=== PATIENT | male | born 1970 | race Caucasian/White ===

== ENCOUNTER 2018-04-08 12:36 | Emergency (ER) | payer OTHER, BC ==
[~2018-04-08] VITALS: Ht 198.1 cm; Wt 124.7 kg
[2018-04-08] MEDS ORDERED: IOHEXOL 240 MG/ML 50ML VIAL. ONE (13:04)
[2018-04-08 13:25] LABS: BASO # 0.1 x10^3/uL (0.0-0.2); BASO % 1 % (0-3); EOS # 0.3 x10^3/uL (0.0-0.7); EOS % 3 % (0-3); HEMATOCRIT 45.8 % (39.0-53.0); HEMOGLOBIN 16.1 g/dL (13.0-17.5); LYMPH # 2.2 x10^3/uL (1.0-4.8); LYMPH % 27 % (24-48); MEAN CORPUSCULAR HEMOGLOBIN 35 pg (25-35); MEAN CORPUSCULAR HGB CONC 35 g/dL (31-37); MEAN CORPUSCULAR VOLUME 99 fL (79-100); MONO # 0.7 x10^3/uL (0.0-1.1); MONO % 8 % (0-9); NEUT # 4.9 x10^3uL (1.8-7.7); NEUT % 60 % (31-73); PLATELET COUNT 219 x10^3/uL (140-400); RED BLOOD COUNT 4.62 x10^6/uL (4.30-5.70); RED CELL DISTRIBUTION WIDTH 12.3 % (11.5-14.5); WHITE BLOOD COUNT 8.1 x10^3/uL (4.0-11.0)
[2018-04-08] MEDS ORDERED: IOHEXOL 240 MG/ML 50ML VIAL. PO ONE (13:30)
[2018-04-08 13:35] LABS: ALBUMIN 3.9 g/dL (3.4-5.0); CALCIUM 8.9 mg/dL (8.5-10.1); CREATININE 1.3 mg/dL (0.7-1.3); GFR 58.7; POTASSIUM 3.9 mmol/L (3.5-5.1); TOTAL BILIRUBIN 1.8 mg/dL (0.2-1.0); TOTAL PROTEIN 7.7 g/dL (6.4-8.2)
[2018-04-08] MEDS: IV NORMAL SALINE 1,000ML 1,000 ML IV SCH (13:40)
--- NOTE | 2018-04-08 13:48 | PHYS DOC ---
Past History Past Medical History: Hypertension, Hypothyroid, Other (Gilbert's syndrome) Past Surgical History: Other Smoking: Non-smoker Alcohol Use: None Drug Use: None Adult General Chief Complaint Chief Complaint: ABDOMINAL PAIN HPI HPI Patient is a 48 year old male who presents with complaining of abdominal pain. Patient complaining of intermittent episodes of epigastric pain for almost one month usually happens about 30 minutes after eating and last about 20 minutes as a cramping pain with radiation to his back and rated his pain 7/10. Patient also complaining of chronic diarrhea with one to 3 loose bowel movement a day for the same time. Patient complaining of mild anorexia and losing few pounds. Patient complaining of increasing thoracic back pain for the last couple days. Patient denies fever and chills, nausea and vomiting, chest pain and shortness of breath, dizziness and palpitation. Patient had history of cholecystectomy more than 10 years ago. Patient Review of Systems Review of Systems Constitutional: Denies fever or chills [] Eyes: Denies change in visual acuity, redness, or eye pain [] HENT: Denies nasal congestion or sore throat [] Respiratory: Denies cough or shortness of breath [] Cardiovascular: No additional information not addressed in HPI [] GI: Reports abdominal pain, diarrhea, denies nausea, vomiting, bloody stools. : Denies dysuria or hematuria [] Musculoskeletal: Denies back pain or joint pain [] Integument: Denies rash or skin lesions [] Neurologic: Denies headache, focal weakness or sensory changes [] Endocrine: Denies polyuria or polydipsia [] All other systems were reviewed and found to be within normal limits, except as documented in this note. Current Medications Current Medications Current Medications Medications (Trade) Dose Ordered Sig/Navin Start Time Stop Time Status Last Admin Dose Admin Iohexol (Omnipaque 240 Mg/ml) 50 ml 1X ONCE 04/08/18 13:30 04/08/18 13:31 DC Iohexol (Omnipaque 300 Mg/ml) 75 ml 1X ONCE 04/08/18 13:30 04/08/18 13:31 DC Sodium Chloride 1,000 ml @ 1,000 mls/hr Q1H 04/08/18 13:00 04/08/18 13:59 Allergies Allergies Allergies Coded Allergies Type Severity Reaction Last Updated Verified No Known Drug Allergies 04/08/18 No Physical Exam Physical Exam Constitutional: Well developed, well nourished, no acute distress, non-toxic appearance. [] HENT: Normocephalic, atraumatic, oropharynx moist, no oral exudates, nose normal. [] Eyes: PERRLA, EOMI, conjunctiva normal, no discharge, mild jaundice. [] Neck: Normal range of motion, no tenderness, supple, no stridor. [] Cardiovascular:Heart rate regular rhythm, no murmur [] Lungs & Thorax: Bilateral breath sounds clear to auscultation [] Abdomen: Bowel sounds normal, soft, no tenderness, no masses, no pulsatile masses. [] Skin: Warm, dry, no erythema, no rash. [] Back: No tenderness, no CVA tenderness. [] Extremities: No tenderness, no cyanosis, no clubbing, ROM intact, no edema. [] Neurologic: Alert and oriented X 3, normal motor function, normal sensory function, no focal deficits noted. [] Psychologic: Affect normal, judgement normal, mood normal. [] Current Patient Data Vital Signs Vital Signs Date Time Temp Pulse Resp B/P (MAP) Pulse Ox O2 Delivery O2 Flow Rate FiO2 04/08/18 12:40 96.2 104 18 97 Room Air EKG EKG [] Radiology/Procedures Radiology/Procedures [address] [id number] IMAGING REPORT Signed PATIENT: KALA CLAYTON ACCOUNT: [id number] : 1970 LOCATION: ER AGE: 48 SEX: M EXAM STATUS: REG ER ORD. PHYSICIAN: SHONDA ALEXANDER MD REASON: upper abdominal pain with chronic diarrhea for 1 months PROCEDURE: CT ABD PELV W/ORAL&IV CONTRAST PQRS Compliance Statement: One or more of the following individualized dose reduction techniques were utilized for this examination: 1. Automated exposure control 2. Adjustment of the mA and/or kV according to patient size 3. Use of iterative reconstruction technique CT ABD PELV W/ORAL IV CONTRAST Clinical Indication: Diffuse abdominal pain x 1 month, diarrhea. hx cholecystectomy, hypertension, fatty liver. Comparison: None. Technique: Helical CT imaging of the abdomen and pelvis is performed after 75 cc of Omnipaque 300 IV contrast. Oral contrast also given. Findings: Lung bases are clear. Cardiac size normal. Cholecystectomy. There are 2 tiny hypodensities in the right hepatic lobe, too small to further characterize, image 15. The liver is otherwise homogeneous. The spleen, pancreas, and adrenal glands are normal. The abdominal aorta is normal caliber. Kidneys enhance symmetrically, no hydronephrosis. Gastric fundal diverticulum. No gastric wall thickening. Moderate-sized fat-containing umbilical hernia. No dilated small bowel. The appendix is normal. There is no colon wall thickening. No abdominal adenopathy or free fluid. The urinary bladder is normal. Prostate size normal. No pelvic free fluid. Degenerative spondylosis of L5/S1. IMPRESSION: No acute abdominal or pelvic abnormality. Electronically signed by: Shreyas Cordova MD (04/08/2018 2:23 PM) [id number] DICTATED AND SIGNED BY: SHREYAS CORDOVA MD DATE: 04/08/18 1415 CC: SHONDA ALEXANDER MD; PCP,NO ~ Course & Med Decision Making Course & Med Decision Making Pertinent Labs and Imaging studies reviewed. (See chart for details) Evaluation of patient in ER showed 48-year-old male patient with complaining of chronic intermittent epigastric pain and intermittent episodes of diarrhea. Patient had unremarkable exam except for mild jaundice. 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 CT abdomen and pelvis was unremarkable. Patient has appointment with GI specialist next week and currently taking Prilosec twice a day. Patient was advised to continue his medication and follow with GI specialist. Dragon Disclaimer Dragon Disclaimer This electronic medical record was generated, in whole or in part, using a voice recognition dictation system. Departure Departure: Impression: Primary Impression: Intermittent epigastric abdominal pain Additional Impressions: Chronic diarrhea Gilbert syndrome Hyperbilirubinemia Disposition: HOME, SELF-CARE (at 1517) Condition: STABLE Referrals: PCP,[facility] (PCP) Patient Instructions: Abdominal Pain (Nonspecific), Chronic Diarrhea Additional Instructions: Drink plenty of liquids Follow-up with your primary care physician in 3-5 days Return to ER if not getting better Continue Prilosec Follow-up with your GI appointment next week Scripts Tramadol Hcl (ULTRAM) 50 Mg Tablet 50 MG PO PRN Q6HRS PRN for PAIN, #20 TAB Prov: SHONDA ALEXANDER MD 04/08/18 Problem Qualifiers SHONDA ALEXANDER MD Apr 08, 2018 13:48
[2018-04-08] MEDS: IOHEXOL 300 MG/ML 75 ML VIAL. IV ONE (13:58)
--- NOTE | 2018-04-08 14:28 | RAD ---
PQRS Compliance Statement: One or more of the following individualized dose reduction techniques were utilized for this examination: 1. Automated exposure control 2. Adjustment of the mA and/or kV according to patient size 3. Use of iterative reconstruction technique CT ABD PELV W/ORAL IV CONTRAST Clinical Indication: Diffuse abdominal pain x 1 month, diarrhea. hx cholecystectomy, hypertension, fatty liver. Comparison: None. Technique: Helical CT imaging of the abdomen and pelvis is performed after 75 cc of Omnipaque 300 IV contrast. Oral contrast also given. Findings: Lung bases are clear. Cardiac size normal. Cholecystectomy. There are 2 tiny hypodensities in the right hepatic lobe, too small to further characterize, image 15. The liver is otherwise homogeneous. The spleen, pancreas, and adrenal glands are normal. The abdominal aorta is normal caliber. Kidneys enhance symmetrically, no hydronephrosis. Gastric fundal diverticulum. No gastric wall thickening. Moderate-sized fat-containing umbilical hernia. No dilated small bowel. The appendix is normal. There is no colon wall thickening. No abdominal adenopathy or free fluid. The urinary bladder is normal. Prostate size normal. No pelvic free fluid. Degenerative spondylosis of L5/S1. IMPRESSION: No acute abdominal or pelvic abnormality. Electronically signed by: Shreyas Coronel MD (04/08/2018 2:23 PM) [id number]
[2018-04-08 15:10] LABS: BACTERIA,URINE 0 /HPF (0-FEW); BILIRUBIN,URINE NEG (NEG); CLARITY,URINE CLEAR; COLOR,URINE AMBER; GLUCOSE,URINE NEG (NEG); NITRITE,URINE NEG (NEG); RBC,URINE 0 /HPF (0-2); SQUAMOUS EPITHELIAL CELL,UR OCC /LPF; UROBILINOGEN,URINE 0.2 mg/dL (0.2 mg/dL); WBC,URINE 0 /HPF (0-4)
[2018-04-08] MEDS ORDERED: TRAM-48 PO (15:20)
[2018-04-08 15:48] VITALS: BP 122/74
== END 2018-04-08 15:52 | disposition home or self-care (01) ==
LOC: ER 12:36
DX: R10.13 Epigastric pain (principal); K52.9 Noninfective gastroenteritis and colitis, unspecified; M54.6 Pain in thoracic spine; E80.4 Gilbert syndrome; I10 Essential (primary) hypertension; E80.6 Other disorders of bilirubin metabolism; E03.9 Hypothyroidism, unspecified; Z90.49 Acquired absence of other specified parts of digestive tract
CPT/HCPCS: 36415; 74177; 80053; 81001; 83690; 85025; 96360; 96361; 99284; Q9967; J7030

== ENCOUNTER 2018-10-16 16:42 | Emergency (ER) | payer OTHER, BC ==
[~2018-10-16] VITALS: Ht 198.1 cm; Wt 122.5 kg
[~2018-10-16 16:42] MED LIST: TRAM-48 PO
[2018-10-16 18:12] LABS: BASO % 1 % (0-3); EOS # 0.2 x10^3/uL (0.0-0.7); EOS % 2 % (0-3); HEMATOCRIT 49.1 % (39.0-53.0); HEMOGLOBIN 16.8 g/dL (13.0-17.5); LYMPH # 1.5 x10^3/uL (1.0-4.8); LYMPH % 23 % (24-48); MEAN CORPUSCULAR HEMOGLOBIN 34 pg (25-35); MEAN CORPUSCULAR HGB CONC 34 g/dL (31-37); MEAN CORPUSCULAR VOLUME 100 fL (79-100); MONO # 0.4 x10^3/uL (0.0-1.1); MONO % 7 % (0-9); NEUT # 4.3 x10^3uL (1.8-7.7); NEUT % 68 % (31-73); PLATELET COUNT 231 x10^3/uL (140-400); RED BLOOD COUNT 4.91 x10^6/uL (4.30-5.70); RED CELL DISTRIBUTION WIDTH 13.1 % (11.5-14.5); WHITE BLOOD COUNT 6.4 x10^3/uL (4.0-11.0)
[2018-10-16] MEDS ORDERED: IV NORMAL SALINE 500ML 500 ML IV ONE (18:15)
--- NOTE | 2018-10-16 18:16 | PHYS DOC ---
Past History Past Medical History: GERD, Hypertension Past Surgical History: Cholecystectomy, Other Smoking: Non-smoker Alcohol Use: None Drug Use: None Adult General Chief Complaint Chief Complaint: ABDOMINAL PAIN HPI HPI Patient is a 48-year-old male presents with intermittent upper abdominal pain, worse with laying down. No worse with exertion. Also notes these had diarrhea for the past month. Discomfort is burning in nature. No relief with his pantoprazole nor Bentyl. Notes that the diarrhea has occasionally black tarry stools. One episode of bright red blood per rectum when wiping 3-4 days ago. No recent changes in weight. Patient travel to [place] about the time of the onset of this but he reports he was already feeling poorly prior to the travel. Denies drinking from any lakes or streams or untreated water. No fever. No nausea or vomiting. His comfort is waxing and waning in moderate in intensity.[] Review of Systems Review of Systems Constitutional: Denies fever or chills [] Eyes: Denies change in visual acuity, redness, or eye pain [] HENT: Denies nasal congestion or sore throat [] Respiratory: Denies cough or shortness of breath [] Cardiovascular: No chest pain or palpitations[] GI: See history of present illness[] : Denies dysuria or hematuria [] Musculoskeletal: Denies back pain or joint pain [] Integument: Denies rash or skin lesions [] Neurologic: Denies headache, focal weakness or sensory changes [] Endocrine: Denies polyuria or polydipsia [] All other systems were reviewed and found to be within normal limits, except as documented in this note. Allergies Allergies Allergies Coded Allergies Type Severity Reaction Last Updated Verified No Known Drug Allergies 04/08/18 No Physical Exam Physical Exam Constitutional: Well developed, well nourished, no acute distress, non-toxic appearance. [] HENT: Normocephalic, atraumatic, bilateral external ears normal, oropharynx moist, no oral exudates, nose normal. [] Eyes: PERRLA, EOMI, conjunctiva normal, no discharge. [] Neck: Normal range of motion, no tenderness, supple, no stridor. [] Cardiovascular:Heart rate regular rhythm, no murmur [] Lungs & Thorax: Bilateral breath sounds clear to auscultation [] Abdomen: Bowel sounds normal, soft, gastric tenderness without any rebound, no guarding, no rigidity, no masses, no pulsatile masses. [] Skin: Warm, dry, no erythema, no rash. [] Back: No tenderness, no CVA tenderness. [] Extremities: No tenderness, no cyanosis, no clubbing, ROM intact, no edema. [] Neurologic: Alert and oriented X 3, normal motor function, normal sensory function, no focal deficits noted. [] Psychologic: Affect normal, judgement normal, mood normal. [] Current Patient Data Vital Signs Vital Signs Date Time Temp Pulse Resp B/P (MAP) Pulse Ox O2 Delivery O2 Flow Rate FiO2 10/16/18 16:50 97.9 83 20 99 Room Air Lab Results Laboratory Tests Test 10/16/18 17:40 White Blood Count 6.4 x10^3/uL (4.0-11.0) Red Blood Count 4.91 x10^6/uL (4.30-5.70) Hemoglobin 16.8 g/dL (13.0-17.5) Hematocrit 49.1 % (39.0-53.0) Mean Corpuscular Volume 100 fL (79-100) Mean Corpuscular Hemoglobin 34 pg (25-35) Mean Corpuscular Hemoglobin Concent 34 g/dL (31-37) Red Cell Distribution Width 13.1 % (11.5-14.5) Platelet Count 231 x10^3/uL (140-400) Neutrophils (%) (Auto) 68 % (31-73) Lymphocytes (%) (Auto) 23 % (24-48) L Monocytes (%) (Auto) 7 % (0-9) Eosinophils (%) (Auto) 2 % (0-3) Basophils (%) (Auto) 1 % (0-3) Neutrophils # (Auto) 4.3 x10^3uL (1.8-7.7) Lymphocytes # (Auto) 1.5 x10^3/uL (1.0-4.8) Monocytes # (Auto) 0.4 x10^3/uL (0.0-1.1) Eosinophils # (Auto) 0.2 x10^3/uL (0.0-0.7) Basophils # (Auto) 0.0 x10^3/uL (0.0-0.2) EKG EKG [] Radiology/Procedures Radiology/Procedures PROCEDURE: CT ABD PELV W/ORAL&IV CONTRAST PQRS Compliance Statement: One or more of the following individualized dose reduction techniques were utilized for this examination: 1. Automated exposure control 2. Adjustment of the mA and/or kV according to patient size 3. Use of iterative reconstruction technique CT abdomen/pelvis with contrast 10/16/2018 6:13 PM INDICATION: Epigastric pain with history of cholecystectomy. COMPARISON: CT abdomen/pelvis April 08, 2018 TECHNIQUE: Multiple axial CT images of the abdomen and pelvis were obtained after the intravenous administration of 75 mL Omnipaque 300. Coronal and sagittal reformats are provided. FINDINGS: Lung bases are clear. Heart size within normal limits. Hypoattenuation of the hepatic parenchyma suggestive of mild hepatic steatosis. Spleen, bilateral adrenal glands and pancreas are normal in appearance. Gallbladder is surgically absent. No intrahepatic or extrahepatic biliary ductal dilatation. The abdominal aorta is normal in course and caliber. There are no pathologically enlarged lymph nodes in the abdomen and pelvis. There is no abdominal free fluid. There is no free intraperitoneal air. Small hiatal hernia. There is a posterior gastric diverticulum measuring 3.1 x 3.3 cm. No adjacent inflammation. Small and large bowel are normal in caliber. There is no evidence for bowel obstruction. There are no pericolonic inflammatory changes. A normal, nondilated appendix is visualized without adjacent inflammatory changes. The kidneys enhance symmetrically. There is no suspicious renal mass. There is no hydronephrosis. There are no suspected calculi within the kidneys, ureters or urinary bladder. Urinary bladder is within normal limits given degree of distention. Prostate and seminal vesicles appear normal. No suspicious osseous normality is identified. IMPRESSION: 1. Mild hepatic steatosis. 2. Posterior gastric diverticulum measuring 3.1 x 3.3 cm without adjacent inflammation. 3. Status post cholecystectomy without evidence for intrahepatic or extrahepatic biliary ductal dilatation.[] Course & Med Decision Making Course & Med Decision Making Pertinent Labs and Imaging studies reviewed. (See chart for details) ED course: Patient arrived, was placed in bed, and tolerated exam well. He was able to tolerate oral contrast and was transported to and from radiology with any complications. He had some improvement of his discomfort with the medications administered in the emergency department. After return of the laboratory and imaging studies, these were discussed with the patient voiced understanding. All questions were answered. He was discharged in improved condition. Medical decision making: This does not appear to be acute coronary syndrome given that symptoms of been going on for the past month without any change with exertion. No evidence of pancreatitis, obstruction, perforation, nor significant electrolyte abnormality. There is the finding noted of the diverticulum of the stomach however there is no evidence of inflammation. Will treat him for what sounds like reflux symptoms and have him follow-up with his regular doctor for scheduling of a possible EGD for further evaluation of these symptoms.[] Dragon Disclaimer Dragon Disclaimer This electronic medical record was generated, in whole or in part, using a voice recognition dictation system. Departure Departure: Impression: Primary Impression: Gastro-esophageal reflux disease with esophagitis Disposition: HOME, SELF-CARE Condition: STABLE Referrals: PCP,NO (PCP) Patient Instructions: Diet for Gastroesophageal Reflux Disease, Adult, Gastritis, Adult, Gastroesophageal Reflux Disease, Adult Additional Instructions: Follow-up with your regular doctor in 2 days. If you do not have regular doctor list of local clinics will be provided for you. Follow the diet recommendations in the discharge instructions. Take your medication as prescribed. You may need to have follow-up with a service representative for possible esophagogastroduodenoscopy (EGD) to provide further evaluation of your symptoms. A note is made on the CAT scan that she have a diverticulum which is an outpouching in the back portion of your stomach. There is no evidence of inflammation on the CAT scan that it is causing today's problems. Return to the ER if worsening discomfort, unable to tolerate liquids, or any other concerns. Scripts Hyoscyamine Sulfate (LEVSIN) 0.125 Mg Tablet 0.125 MG PO QID for abdominal pain/cramping, #30 TAB Prov: NIKO HERNANDEZ DO 10/16/18 Sucralfate (CARAFATE) 1 Gm Tablet 1 TAB PO QID for gastritis, #120 TAB 0 Refills Prov: NIKO HERNANDEZ DO 10/16/18 NIKO HERNANDEZ DO Oct 16, 2018 18:16
[2018-10-16] MEDS ORDERED: IOHEXOL 240 MG/ML 50ML VIAL. ONE (18:17)
[2018-10-16 18:19] LABS: ALBUMIN 4.2 g/dL (3.4-5.0); ALBUMIN/GLOBULIN RATIO 1.1 (1.0-1.7); CALCIUM 9.4 mg/dL (8.5-10.1); GFR 79.4; POTASSIUM 4.2 mmol/L (3.5-5.1); TOTAL BILIRUBIN 1.6 mg/dL (0.2-1.0); TOTAL PROTEIN 8.2 g/dL (6.4-8.2)
[2018-10-16 18:25] LABS: BACTERIA,URINE FEW /HPF (0-FEW); BILIRUBIN,URINE NEG (NEG); CLARITY,URINE CLEAR; COLOR,URINE YELLOW; GLUCOSE,URINE NEG (NEG); NITRITE,URINE NEG (NEG); RBC,URINE OCC /HPF (0-2); UROBILINOGEN,URINE 0.2 mg/dL (0.2 mg/dL); WBC,URINE OCC /HPF (0-4)
[2018-10-16] MEDS ORDERED: HYOSCYAMINE 0.125 MG TAB.RAPDIS PO ONE (18:30)
[2018-10-16] MEDS ORDERED: FAMOTIDINE 20 MG/2 ML VIAL IVP ONE (18:30)
[2018-10-16] MEDS ORDERED: IOHEXOL 300 MG/ML 75 ML VIAL. IV ONE (18:45)
--- NOTE | 2018-10-16 20:13 | RAD ---
PQRS Compliance Statement: One or more of the following individualized dose reduction techniques were utilized for this examination: 1. Automated exposure control 2. Adjustment of the mA and/or kV according to patient size 3. Use of iterative reconstruction technique CT abdomen/pelvis with contrast 10/16/2018 6:13 PM INDICATION: Epigastric pain with history of cholecystectomy. COMPARISON: CT abdomen/pelvis April 08, 2018 TECHNIQUE: Multiple axial CT images of the abdomen and pelvis were obtained after the intravenous administration of 75 mL Omnipaque 300. Coronal and sagittal reformats are provided. FINDINGS: Lung bases are clear. Heart size within normal limits. Hypoattenuation of the hepatic parenchyma suggestive of mild hepatic steatosis. Spleen, bilateral adrenal glands and pancreas are normal in appearance. Gallbladder is surgically absent. No intrahepatic or extrahepatic biliary ductal dilatation. The abdominal aorta is normal in course and caliber. There are no pathologically enlarged lymph nodes in the abdomen and pelvis. There is no abdominal free fluid. There is no free intraperitoneal air. Small hiatal hernia. There is a posterior gastric diverticulum measuring 3.1 x 3.3 cm. No adjacent inflammation. Small and large bowel are normal in caliber. There is no evidence for bowel obstruction. There are no pericolonic inflammatory changes. A normal, nondilated appendix is visualized without adjacent inflammatory changes. The kidneys enhance symmetrically. There is no suspicious renal mass. There is no hydronephrosis. There are no suspected calculi within the kidneys, ureters or urinary bladder. Urinary bladder is within normal limits given degree of distention. Prostate and seminal vesicles appear normal. No suspicious osseous normality is identified. IMPRESSION: 1. Mild hepatic steatosis. 2. Posterior gastric diverticulum measuring 3.1 x 3.3 cm without adjacent inflammation. 3. Status post cholecystectomy without evidence for intrahepatic or extrahepatic biliary ductal dilatation. Electronically signed by: Estefania Zhong MD (10/16/2018 8:10 PM) [facility]
[2018-10-16 20:22] VITALS: BP 120/77
[2018-10-16] MEDS ORDERED: HYOS0.1264 PO (20:28)
[2018-10-16] MEDS ORDERED: SUCR1TAB35 PO (20:28)
== END 2018-10-16 20:40 | disposition home or self-care (01) ==
LOC: ER 16:42
DX: K21.0 Gastro-esophageal reflux disease with esophagitis (principal); I10 Essential (primary) hypertension
CPT/HCPCS: 36415; 74177; 80053; 81001; 83690; 85025; 96361; 96374; 99285; J3490; J7040; Q9967

== ENCOUNTER 2019-02-04 09:38 | Emergency (ER) | payer OTHER, BC ==
[~2019-02-04] VITALS: Ht 200.7 cm; Wt 98.9 kg
[~2019-02-04 09:38] MED LIST changes: +HYOS0.1264 PO; +SUCR1TAB35 PO
[2019-02-04] MEDS ORDERED: IV NORMAL SALINE 1,000ML 1,000 ML IV SCH (09:57)
[2019-02-04] MEDS ORDERED: ASPIRIN 81 MG TAB.CHEW PO ONE (10:00)
--- NOTE | 2019-02-04 10:28 | RAD ---
EXAM: Head CT without contrast. HISTORY: Numbness. Headache. TECHNIQUE: Computed tomographic images of the head were obtained without contrast. *One or more of the following individualized dose reduction techniques were utilized for this examination: 1. Automated exposure control. 2. Adjustment of the mA and/or kV according to patient size. 3. Use of iterative reconstruction technique. COMPARISON: None. FINDINGS: There is no acute or subacute extra-axial or intraparenchymal hemorrhage. There is no mass effect or midline shift. There is no hydrocephalus. The clark-white matter differentiation pattern is intact. There is a small midline posterior fossa arachnoid cyst or megacisterna magna. There is severe mucosal thickening involving the left frontal sinus. There is mild sphenoid sinus mucosal thickening. The mastoid air cells are clear. There is no suspicious calvarial lesion. IMPRESSION: 1. No acute intracranial finding. Note is made that MRI is more sensitive for acute infarction. 2. Left frontal sinus disease. Electronically signed by: Jannette Gonzalez MD (02/04/2019 10:24 AM) [id number]
[2019-02-04 10:44] LABS: BASO # 0.1 x10^3/uL (0.0-0.2); BASO % 1 % (0-3); EOS # 0.3 x10^3/uL (0.0-0.7); EOS % 4 % (0-3); HEMATOCRIT 46.4 % (39.0-53.0); HEMOGLOBIN 16.1 g/dL (13.0-17.5); LYMPH # 2.3 x10^3/uL (1.0-4.8); LYMPH % 31 % (24-48); MEAN CORPUSCULAR HEMOGLOBIN 34 pg (25-35); MEAN CORPUSCULAR HGB CONC 35 g/dL (31-37); MEAN CORPUSCULAR VOLUME 98 fL (79-100); MONO # 0.5 x10^3/uL (0.0-1.1); MONO % 6 % (0-9); NEUT # 4.3 x10^3uL (1.8-7.7); NEUT % 57 % (31-73); PLATELET COUNT 196 x10^3/uL (140-400); RED BLOOD COUNT 4.72 x10^6/uL (4.30-5.70); RED CELL DISTRIBUTION WIDTH 11.9 % (11.5-14.5); WHITE BLOOD COUNT 7.5 x10^3/uL (4.0-11.0)
--- NOTE | 2019-02-04 10:53 | RAD ---
PORTABLE CHEST 1V History: Chest pain Comparison: None. Findings: Single view of the chest is submitted. There is no infiltrate, pneumothorax, or effusion. Pericardial cardiac silhouette is upper limits of normal. There is probably tortuous ascending thoracic aorta although cannot exclude ectasia. Impression: 1. There is probably tortuous ascending thoracic aorta although cannot exclude ectasia. Electronically signed by: Allan Butts MD (02/04/2019 10:49 AM) [id number]
--- NOTE | 2019-02-04 10:53 | PHYS DOC ---
Past History Past Medical History: Hypertension, Hyperthyroid Past Surgical History: Cholecystectomy, Other Additional Past Surgical Histo: thyroid ablation; right arm fx repair Smoking: Non-smoker Alcohol Use: None Drug Use: None Adult General Chief Complaint Chief Complaint: CHEST PAIN HPI HPI Patient is a 48-year-old male who presents with complaint of intermittent chest discomfort for the last week. Patient states that is on the left side of the chest and he describes pain as sharp and stabbing in nature. He states that currently he is having the pain is about a 2 out of 10. He states that at its worse it's been about a 4 out of 10. He denies any nausea, vomiting or diaphoresis. Patient also complains of a headache that he rates at a 4 out of 10 and states that he has numbness to the back of his scalp that radiates down the back of his neck on both sides. He denies any fever. He denies any lateralizing weakness or speech deficits. Regarding the chest pain, patient is not aware of any exacerbating or alleviating factors.[] Review of Systems Review of Systems Constitutional: Denies fever or chills [] Respiratory: Denies cough or shortness of breath [] Cardiovascular: No additional information not addressed in HPI [] GI: Denies abdominal pain, nausea, vomiting or diarrhea [] Integument: Denies rash or skin lesions [] Neurologic: Complains of headache without focal weakness. Complains of bilateral scalp and posterior neck sensory changes [] All other systems were reviewed and found to be within normal limits, except as documented in this note. Current Medications Current Medications Current Medications Medications (Trade) Dose Ordered Sig/[facility] Start Time Stop Time Status Last Admin Dose Admin Aspirin (Children'S Aspirin) 324 mg 1X ONCE 02/04/19 10:00 02/04/19 10:02 DC 02/04/19 10:16 324 MG Sodium Chloride 1,000 ml @ 1,000 mls/hr Q1H 02/04/19 09:57 02/04/19 10:56 02/04/19 10:25 1,000 MLS/HR Allergies Allergies Allergies Coded Allergies Type Severity Reaction Last Updated Verified No Known Drug Allergies 04/08/18 No Physical Exam Physical Exam Constitutional: Well developed, well nourished, no acute distress, non-toxic appearance. [] HENT: Normocephalic, atraumatic, bilateral external ears normal, oropharynx moist, no oral exudates, nose normal. [] Eyes: PERRLA, EOMI, conjunctiva normal, no discharge. [] Neck: Normal range of motion, no tenderness, supple, no stridor. [] Cardiovascular: Regular rate and rhythm[] Lungs & Thorax: Bilateral breath sounds clear to auscultation [] Abdomen: Bowel sounds normal, soft, no tenderness. [] Skin: Warm, dry, no erythema, no rash. [] Extremities: No tenderness, no cyanosis, no clubbing, ROM intact. [] Neurologic: Alert and oriented X 3, no focal deficits noted. [] Current Patient Data Vital Signs Vital Signs Date Time Temp Pulse Resp B/P (MAP) Pulse Ox O2 Delivery O2 Flow Rate FiO2 02/04/19 10:26 71 16 131/93 (106) 98 Room Air 02/04/19 09:50 98.4 EKG EKG EKG demonstrates normal sinus rhythm with rate of 79.[] Radiology/Procedures Radiology/Procedures [] Impressions: PROCEDURE: CT HEAD WO CONTRAST EXAM: Head CT without contrast. HISTORY: Numbness. Headache. TECHNIQUE: Computed tomographic images of the head were obtained without contrast. *One or more of the following individualized dose reduction techniques were utilized for this examination: 1. Automated exposure control. 2. Adjustment of the mA and/or kV according to patient size. 3. Use of iterative reconstruction technique. COMPARISON: None. FINDINGS: There is no acute or subacute extra-axial or intraparenchymal hemorrhage. There is no mass effect or midline shift. There is no hydrocephalus. The clark-white matter differentiation pattern is intact. There is a small midline posterior fossa arachnoid cyst or megacisterna magna. There is severe mucosal thickening involving the left frontal sinus. There is mild sphenoid sinus mucosal thickening. The mastoid air cells are clear. There is no suspicious calvarial lesion. IMPRESSION: 1. No acute intracranial finding. Note is made that MRI is more sensitive for acute infarction. 2. Left frontal sinus disease. Electronically signed by: Jannette Gonzalez MD (02/04/2019 10:24 AM) [facility] Course & Med Decision Making Course & Med Decision Making Pertinent Labs and Imaging studies reviewed. (See chart for details) [] Dragon Disclaimer Dragon Disclaimer This electronic medical record was generated, in whole or in part, using a voice recognition dictation system. Departure Departure: Impression: Primary Impression: Atypical chest pain Additional Impression: Headache Disposition: 01 HOME, SELF-CARE Condition: STABLE Referrals: NICCI PFEIFFER DO (PCP) Patient Instructions: Chest Pain (Nonspecific), General Headache Without Cause, Headache, FAQs Problem Qualifiers Additional Impression: Headache Headache type: unspecified Headache chronicity pattern: unspecified pattern Intractability: not intractable Qualified Codes: R51 - Headache MAGGI DYE Jr., DO Feb 04, 2019 10:52
[2019-02-04 11:07] LABS: ALBUMIN 3.7 g/dL (3.4-5.0); CREATININE 0.8 mg/dL (0.7-1.3); GFR 102.7; POTASSIUM 4.1 mmol/L (3.5-5.1); TOTAL BILIRUBIN 1.3 mg/dL (0.2-1.0); TOTAL PROTEIN 7.5 g/dL (6.4-8.2)
--- NOTE | 2019-02-04 11:13 | EKG ---
[address] [address] Test Date: 2019-02-04 Test Time: 09:48:01 Pat Name: KALA CLAYTON Department: Room: Gender: M Analytic Programmer: TERRY : 1970 Requested By: MAGGI DYE Order Number: [id number] Reading MD: Minesh Mcdowell MD Measurements Intervals [place] Rate: 79 P: 55 [place]: 148 QRS: 36 QRSD: 92 T: 36 QT: 390 QTc: 448 Interpretive Statements SINUS RHYTHM Electronically Signed On 02-04-2019 13:27:11 SPARE PARTS CLERK by Minesh Mcdowell MD
[2019-02-04 12:30] VITALS: BP 136/102
== END 2019-02-04 12:25 | disposition home or self-care (01) ==
LOC: ER 09:38
DX: R07.89 Other chest pain (principal); R51 Headache; I10 Essential (primary) hypertension; E03.9 Hypothyroidism, unspecified
CPT/HCPCS: 36415; 70450; 71045; 80053; 83735; 83880; 84484; 85025; 85379; 93005; 99285-25; J7030

== ENCOUNTER 2020-01-22 13:11 | Emergency (ER) | payer OTHER, BC ==
[~2020-01-22] VITALS: Ht 200.7 cm; Wt 112.3 kg
[2020-01-22 14:02] LABS: BASO # 0.1 x10^3/uL (0.0-0.2); BASO % 1 % (0-3); EOS # 0.1 x10^3/uL (0.0-0.7); EOS % 1 % (0-3); HEMATOCRIT 41.2 % (39.0-53.0); LYMPH # 1.7 x10^3/uL (1.0-4.8); LYMPH % 22 % (24-48); MEAN CORPUSCULAR HEMOGLOBIN 35 pg (25-35); MEAN CORPUSCULAR HGB CONC 34 g/dL (31-37); MEAN CORPUSCULAR VOLUME 103 fL (79-100); MONO # 0.5 x10^3/uL (0.0-1.1); MONO % 7 % (0-9); NEUT # 5.4 x10^3uL (1.8-7.7); NEUT % 69 % (31-73); PLATELET COUNT 224 x10^3/uL (140-400); RED CELL DISTRIBUTION WIDTH 13.4 % (11.5-14.5); WHITE BLOOD COUNT 7.8 x10^3/uL (4.0-11.0)
--- NOTE | 2020-01-22 14:10 | PHYS DOC ---
Past History Past Medical History: Anxiety, High Cholesterol, Hypertension, Hypothyroid Past Surgical History: Cholecystectomy, Other Additional Past Surgical Histo: thyroid ablation; right arm fx repair Smoking: Non-smoker Alcohol Use: None Drug Use: None Adult General Chief Complaint Chief Complaint: CHEST PAIN HPI HPI Patient is a 49yo male presenting for substernal chest pressure. Onset was this morning while taking trash out. Nothing known makes better or worse. Reports x2 similar self-limiting episodes suffered in last 48 hours with activity/body position changes. Associated symptoms include lighthededness, mild vision changes and nausea. Was diagnosed with a PE last week and on Eliquis. He reports being anxious at baseline and unsure if "I need to get rescanned". Review of Systems Review of Systems Fourteen body systems of review of systems have been reviewed. See HPI for per tinent positives and negative responses, other pacheco all other systems are negative, non-pertinent or non-contributory Allergies Allergies Allergies Coded Allergies Type Severity Reaction Last Updated Verified No Known Drug Allergies 04/08/18 No Physical Exam Physical Exam Constitutional: Well developed, well nourished, no acute distress, non-toxic appearance. HENT: Normocephalic, atraumatic, bilateral external ears normal, oropharynx moist, no oral exudates, nose normal. Eyes: PERRLA, EOMI, conjunctiva normal, no discharge. Neck: Normal range of motion, no tenderness, supple, no stridor. Cardiovascular: Heart rate regular, sinus rhythm, no murmurs rubs or gallops Lungs & Thorax: Bilateral breath sounds clear to auscultation Abdomen: Bowel sounds normal, soft, no tenderness, no masses, no pulsatile masses. Nonsurgical abdomen, no peritoneal signs Skin: Warm, dry, no erythema, no rash. Back: No tenderness, no CVA tenderness. Extremities: No tenderness, no cyanosis, no clubbing, ROM intact, no edema. Neurologic: Alert and oriented X 3, grossly normal motor & sensory function, no focal deficits noted. Psychologic: Affect normal, judgement normal, mood normal. Current Patient Data Vital Signs Vital Signs Date Time Temp Pulse Resp B/P (MAP) Pulse Ox O2 Delivery O2 Flow Rate FiO2 01/22/20 13:26 97.8 82 16 145/88 (107) 99 Room Air Lab Results Laboratory Tests Test 01/22/20 13:55 White Blood Count 7.8 x10^3/uL (4.0-11.0) Red Blood Count 4.00 x10^6/uL (4.30-5.70) L Hemoglobin 14.0 g/dL (13.0-17.5) Hematocrit 41.2 % (39.0-53.0) Mean Corpuscular Volume 103 fL (79-100) H Mean Corpuscular Hemoglobin 35 pg (25-35) Mean Corpuscular Hemoglobin Concent 34 g/dL (31-37) Red Cell Distribution Width 13.4 % (11.5-14.5) Platelet Count 224 x10^3/uL (140-400) Neutrophils (%) (Auto) 69 % (31-73) Lymphocytes (%) (Auto) 22 % (24-48) L Monocytes (%) (Auto) 7 % (0-9) Eosinophils (%) (Auto) 1 % (0-3) Basophils (%) (Auto) 1 % (0-3) Neutrophils # (Auto) 5.4 x10^3uL (1.8-7.7) Lymphocytes # (Auto) 1.7 x10^3/uL (1.0-4.8) Monocytes # (Auto) 0.5 x10^3/uL (0.0-1.1) Eosinophils # (Auto) 0.1 x10^3/uL (0.0-0.7) Basophils # (Auto) 0.1 x10^3/uL (0.0-0.2) EKG EKG EKG ordered and interpreted by myself at 1330 hrs. as sinus rhythm at 87 bpm, prolonged QTC at 42, no axis deviation, no acute ischemic findings, no evidence of right heart strain or other fascicular blocks,, no STEMI Radiology/Procedures Radiology/Procedures PROCEDURE: CHEST AP ONLY CHEST AP ONLY 01/22/2020 1:42 PM INDICATION: Chest pain COMPARISON: 02/04/2019 TECHNIQUE: Portable frontal view of the chest is provided. FINDINGS: The cardiomediastinal silhouette is within normal limits. Lungs are clear. There are no significant pleural effusions. There is no pulmonary vascular congestion. No pneumothorax. No suspicious osseous abnormality. IMPRESSION: There is no acute cardiopulmonary process. Electronically signed by: Estefania Zhong MD (01/22/2020 2:37 PM) [id number] Heart Score HEART Score for Chest Pain: HEART Score for Chest Pain Response (Comments) Value History Slighlty/Non-Suspicious 0 ECG Normal 0 Age >45 - < 65 1 Risk Factors 1 or 2 Risk Factors 1 Troponin < Normal Limit 0 Total 2 Risk Factors: Risk Factors: DM, Current or recent (<one month) smoker, HTN, HLP, family history of CAD, obesity. Risk Scores: Risk Factors: DM, Current or recent (<one month) smoker, HTN, HLP, family history of CAD, obesity. Course & Med Decision Making Course & Med Decision Making Pertinent Labs and Imaging studies reviewed. (See chart for details) Discussed no obvious emergent/surgical findings. Deferred T Angio and/or d-dimer that patient requested as management would not change in hemodynamically stable, asymptomatic patient I feel patient's episodes were likely exertional induced, dehydrated with position changes. There is also a big anxiety component to visit today Patient has PCP, Cardio and pulm follow up this upcoming week which I feel is reasonable, strict return precautions discussed with good understanding, all questions and concerns addressed prior to departure Dragon Disclaimer Dragon Disclaimer This electronic medical record was generated, in whole or in part, using a voice recognition dictation system. Departure Departure: Impression: Primary Impression: Chest pain, unspecified Additional Impressions: Anxiety about health History of pulmonary embolism Disposition: 01 DC HOME SELF CARE/HOMELESS Condition: STABLE Referrals: NICCI PFEIFFER DO (PCP) Additional Instructions: As instructed prior to ER departure, please call your primary care physician to notify them of this visit today You have been previously scheduled to see your PCP this upcoming week, please keep this as previously scheduled. Please also keep your prior outpatient scheduled appointments with pulmonology, oncology, and cardiology Your evaluated today for chest pain and there were no emergent and/or surgical findings present. With that said, please keep a close eye on your symptomology has some issues take time to fully present If any concerning signs or symptoms represent prior to outpatient follow-up please do not hesitate to come back for repeat evaluation Is a pleasure to take care of you and I wish you a speedy recovery Problem Qualifiers LUIS ENRIQUE NGUYEN DO Jan 22, 2020 14:10
[2020-01-22] MEDS ORDERED: IV NORMAL SALINE 1,000ML 1,000 ML IV ONE (14:30)
[2020-01-22] MEDS ORDERED: ASPIRIN 325 MG TABLET PO ONE (14:30)
[2020-01-22 14:34] LABS: CALCIUM 9.3 mg/dL (8.5-10.1); GFR 79.1; POTASSIUM 3.7 mmol/L (3.5-5.1)
[2020-01-22 14:38] LABS: ALBUMIN/GLOBULIN RATIO 1.1 (1.0-1.7); TOTAL BILIRUBIN 1.6 mg/dL (0.2-1.0); TOTAL PROTEIN 7.5 g/dL (6.4-8.2)
--- NOTE | 2020-01-22 14:40 | RAD ---
CHEST AP ONLY 01/22/2020 1:42 PM INDICATION: Chest pain COMPARISON: 02/04/2019 TECHNIQUE: Portable frontal view of the chest is provided. FINDINGS: The cardiomediastinal silhouette is within normal limits. Lungs are clear. There are no significant pleural effusions. There is no pulmonary vascular congestion. No pneumothorax. No suspicious osseous abnormality. IMPRESSION: There is no acute cardiopulmonary process. Electronically signed by: Estefania Zhong MD (01/22/2020 2:37 PM) [id number]
[2020-01-22 15:06] VITALS: BP 157/96
--- NOTE | 2020-01-24 13:23 | EKG ---
[address] [address] Test Date: 2020-01-22 Test Time: 13:23:36 Pat Name: KALA CLAYTON Department: Room: Gender: M Director Of Academic Support: [facility] : 1970 Requested By: LUIS ENRIQUE NGUYEN Order Number: [id number] Reading MD: Lamin Lazo Measurements Intervals [place] Rate: 87 P: 38 TN: 152 QRS: 26 QRSD: 94 T: 41 QT: 400 QTc: 482 Interpretive Statements SINUS RHYTHM PROLONGED QT Electronically Signed On 01-24-2020 15:45:13 OVEN BAKER by Lamin Lazo
== END 2020-01-22 15:58 | disposition home or self-care (01) ==
LOC: ER 13:11
DX: R07.89 Other chest pain (principal); R11.0 Nausea; E86.0 Dehydration; F41.9 Anxiety disorder, unspecified; E78.00 Pure hypercholesterolemia, unspecified; I10 Essential (primary) hypertension; E03.9 Hypothyroidism, unspecified; Z90.49 Acquired absence of other specified parts of digestive tract; Z86.711 Personal history of pulmonary embolism; Z98.890 Other specified postprocedural states
CPT/HCPCS: 36415; 71045; 80053; 83880; 84484; 85025; 93005; 96360; 99285; J7030

== ENCOUNTER 2020-04-22 13:04 | Emergency (ER) | payer BC ==
[~2020-04-22] VITALS: Ht 198.1 cm; Wt 115.0 kg
[2020-04-22 15:08] LABS: BACTERIA,URINE 0 /HPF (0-FEW); BILIRUBIN,URINE NEG (NEG); CLARITY,URINE CLEAR; COLOR,URINE YELLOW; GLUCOSE,URINE NEG (NEG); NITRITE,URINE NEG (NEG); RBC,URINE 0 /HPF (0-2); SQUAMOUS EPITHELIAL CELL,UR OCC /LPF; UROBILINOGEN,URINE 0.2 mg/dL (0.2 mg/dL)
[2020-04-22 15:41] LABS: BASO % 0 % (0-3); EOS # 0.1 x10^3/uL (0.0-0.7); EOS % 2 % (0-3); HEMATOCRIT 46.1 % (39.0-53.0); HEMOGLOBIN 15.7 g/dL (13.0-17.5); LYMPH # 1.9 x10^3/uL (1.0-4.8); LYMPH % 27 % (24-48); MEAN CORPUSCULAR HEMOGLOBIN 34 pg (25-35); MEAN CORPUSCULAR HGB CONC 34 g/dL (31-37); MEAN CORPUSCULAR VOLUME 100 fL (79-100); MONO # 0.5 x10^3/uL (0.0-1.1); MONO % 8 % (0-9); NEUT # 4.4 x10^3uL (1.8-7.7); NEUT % 63 % (31-73); PLATELET COUNT 217 x10^3/uL (140-400); RED BLOOD COUNT 4.63 x10^6/uL (4.30-5.70); RED CELL DISTRIBUTION WIDTH 11.9 % (11.5-14.5)
[2020-04-22 15:54] LABS: CALCIUM 8.8 mg/dL (8.5-10.1); CREATININE 0.9 mg/dL (0.7-1.3); POTASSIUM 3.7 mmol/L (3.5-5.1)
--- NOTE | 2020-04-22 15:59 | RAD ---
Exam: Chest one view INDICATION: Back pain TECHNIQUE: Frontal view which Comparisons: 01/22/2020 FINDINGS: The cardiomediastinal silhouette and pulmonary vessels are within normal limits. The lung and pleural spaces are clear. IMPRESSION: No acute cardiopulmonary process. Electronically signed by: Denys Li MD (04/22/2020 3:57 PM) HUSAM
[2020-04-22 16:00] LABS: ALBUMIN 4.2 g/dL (3.4-5.0); DIRECT BILIRUBIN 0.3 mg/dL (0.0-0.2)
--- NOTE | 2020-04-22 16:04 | EKG ---
[address] [address] Test Date: 2020-04-22 Test Time: 15:50:22 Pat Name: KALA CLAYTON Department: Room: Gender: M Certified Scrub Tech: HERMINIA : 1970 Requested By: THOMAS MATUTE Order Number: [id number] Reading MD: Measurements Intervals [place] Rate: 74 P: 45 ME: 154 QRS: 15 QRSD: 92 T: 38 QT: 412 QTc: 458 Interpretive Statements SINUS RHYTHM NORMAL ECG RI6.02 No previous ECG available for comparison
[2020-04-22 16:42] VITALS: BP 154/101
--- NOTE | 2020-04-22 16:55 | RAD ---
Exam: CT of abdomen and pelvis INDICATION: Left-sided flank pain onset Sunday TECHNIQUE: Sequential axial images through the abdomen and pelvis obtained without IV contrast. Sagit tolu and coronal reformatted images were reconstructed from the axial data and reviewed. Comparisons: 10/16/2018 FINDINGS: Heart size is normal. No pericardial effusion. Visualized lung bases are clear. No pleural effusion. Evaluation of solid organs limited secondary to noncontrast technique. Liver, spleen, pancreas, and adrenals are unremarkable. No perinephric inflammation or hydronephrosis. No renal or ureteral calculi are identified. Bladder is distended and appears thin-walled. Prostate is not enlarged. Large and small bowel are unremarkable. Appendix is normal. No free intra-abdominal air or fluid. No obstruction. Abdominal aorta has a normal course and caliber. No enlarged abdominal lymph nodes are identified. No suspicious osseous lesions or acute fractures. IMPRESSION: No acute process identified within the abdomen or pelvis. No renal or ureteral calculi. No evidence f or obstructive. Exposure: One or more of the following in the visualized dose reduction techniques were utilized for this examination: 1. Automated exposure control 2. Adjustment of the MA and/or KV according to patient size 3. Use of iterative of reconstructive technique Electronically signed by: Denys Li MD (04/22/2020 4:53 PM) [facility]
--- NOTE | 2020-04-22 17:07 | PHYS DOC ---
Past History Past Medical History: Anxiety, Hypertension, Kidney Stones Past Surgical History: Other Additional Past Surgical Histo: thyroid ablation; right arm fx repair Smoking: Non-smoker Alcohol Use: None Drug Use: None General Adult EDM: Chief Complaint: FLANK PAIN HPI: HPI: This is a pleasant 50-year-old male presenting the emergency department today with left-sided flank pain. His pain is been present intermittently for 2 days. He has a history of kidney stones. He has not had any blood in his urine. The pain is on the left side. He had been to a chiropractor because he thought he injured his back but that has not helped and his pain is persistent. It is a throbbing aching pain that does not wrap around. It is not associate with nausea vomiting chest pain shortness of breath fevers chills. He reports now more normal bowel movements and normal urinary habits. Review of systems negative for chest pain shortness of breath vomiting fevers chills. All other review of systems negative. ED course: 50-year-old male presenting with left-sided flank pain. On arrival the patient is afebrile with a normal heart rate. Satting well on room air. CBC unremarkable. chemistry panel shows a mild elevated in the bilirubin. AST and ALT within normal limit. Lipase within normal limits. The remainder the chemistry panel unremarkable. Urine analysis shows trace blood. No leuk esterase. No nitrates. No bacteria. EKG reviewed by myself shows sinus rhythm with a regular rate. ST segments congruent. Not suggestive of acute ischemia. CT abdomen pelvis shows no acute process identified. Will discharge patient to follow-up with PCP tomorrow for repeat abdominal exam and repeat bilirubin. On reexamination the patient is more comfortable. His abdomen is soft and nontender without rebound tenderness or guarding. Allergies: Allergies: Allergies Coded Allergies Type Severity Reaction Last Updated Verified No Known Drug Allergies 04/08/18 No Physical Exam: PE: Constitutional: Well developed, well nourished, no acute distress, non-toxic appearance. [] HENT: Normocephalic, atraumatic, bilateral external ears normal, oropharynx moist, no oral exudates, nose normal. [] Eyes: PERRLA, EOMI, conjunctiva normal, no discharge. [] Neck: Normal range of motion, no tenderness, supple, no stridor. [] Cardiovascular:Heart rate regular rhythm, no murmur [] Lungs & Thorax: Bilateral breath sounds clear to auscultation [] Abdomen: Bowel sounds normal, soft, no tenderness, no masses, no pulsatile masses. No rebound tenderness or guarding. Negative Nino sign. Negative McBurney's point. Skin: Warm, dry, no erythema, no rash. [] Back: No tenderness, no CVA tenderness. Extremities: No tenderness, no cyanosis, no clubbing, ROM intact, no edema. [] Neurologic: Alert and oriented X 3, normal motor function, normal sensory function, no focal deficits noted. [] Psychologic: Affect normal, judgement normal, mood normal. [] Current Patient Data: Labs: Laboratory Tests Test 04/22/20 13:55 04/22/20 15:13 Urine Collection Type Unknown Urine Color Yellow Urine Clarity Clear Urine pH 6.0 Urine Specific [place] >=1.030 Urine Protein Neg (NEG-TRACE) Urine Glucose (UA) Neg mg/dL (NEG) Urine Ketones (Stick) Neg mg/dL (NEG) Urine Blood Trace (NEG) Urine Nitrite Neg (NEG) Urine Bilirubin Neg (NEG) Urine Urobilinogen Dipstick 0.2 mg/dL (0.2 mg/dL) Urine Leukocyte Esterase Neg (NEG) Urine RBC 0 /HPF (0-2) Urine WBC 1-4 /HPF (0-4) Urine Squamous Epithelial Cells Occ /LPF Urine Bacteria 0 /HPF (0-FEW) Urine Mucus Mod /LPF White Blood Count 7.0 x10^3/uL (4.0-11.0) Red Blood Count 4.63 x10^6/uL (4.30-5.70) Hemoglobin 15.7 g/dL (13.0-17.5) Hematocrit 46.1 % (39.0-53.0) Mean Corpuscular Volume 100 fL (79-100) Mean Corpuscular Hemoglobin 34 pg (25-35) Mean Corpuscular Hemoglobin Concent 34 g/dL (31-37) Red Cell Distribution Width 11.9 % (11.5-14.5) Platelet Count 217 x10^3/uL (140-400) Neutrophils (%) (Auto) 63 % (31-73) Lymphocytes (%) (Auto) 27 % (24-48) Monocytes (%) (Auto) 8 % (0-9) Eosinophils (%) (Auto) 2 % (0-3) Basophils (%) (Auto) 0 % (0-3) Neutrophils # (Auto) 4.4 x10^3uL (1.8-7.7) Lymphocytes # (Auto) 1.9 x10^3/uL (1.0-4.8) Monocytes # (Auto) 0.5 x10^3/uL (0.0-1.1) Eosinophils # (Auto) 0.1 x10^3/uL (0.0-0.7) Basophils # (Auto) 0.0 x10^3/uL (0.0-0.2) Sodium Level 138 mmol/L (136-145) Potassium Level 3.7 mmol/L (3.5-5.1) Chloride Level 100 mmol/L (98-107) Carbon Dioxide Level 30 mmol/L (21-32) Anion Gap 8 (6-14) Blood Urea Nitrogen 18 mg/dL (8-26) Creatinine 0.9 mg/dL (0.7-1.3) Estimated GFR (Cockcroft-Gault) 89.0 Glucose Level 91 mg/dL (70-99) Calcium Level 8.8 mg/dL (8.5-10.1) Total Bilirubin 2.0 mg/dL (0.2-1.0) H Direct Bilirubin 0.3 mg/dL (0.0-0.2) H Aspartate Amino Transferase (AST) 17 U/L (15-37) Alanine Aminotransferase (ALT) 31 U/L (16-63) Alkaline Phosphatase 57 U/L (46-116) Total Protein 8.0 g/dL (6.4-8.2) Albumin 4.2 g/dL (3.4-5.0) Lipase 78 U/L (73-393) Vital Signs: Vital Signs Date Time Temp Pulse Resp B/P (MAP) Pulse Ox O2 Delivery O2 Flow Rate FiO2 04/22/20 16:42 75 16 154/101 (118) 98 Room Air 04/22/20 14:00 98.4 EKG: EKG: [] Radiology/Procedures: Radiology/Procedures: [] Heart Score: Risk Factors: Risk Factors: DM, Current or recent (<one month) smoker, HTN, HLP, family history of CAD, obesity. Risk Scores: Score 0 - 3: 2.5% MACE over next 6 weeks - Discharge Home Score 4 - 6: 20.3% MACE over next 6 weeks - Admit for Clinical Observation Score 7 - 10: 72.7% MACE over next 6 weeks - Early Invasive Strategies Course & Med Decision Making: Course & Med Decision Making Pertinent Labs and Imaging studies reviewed. (See chart for details) [] Dragon Disclaimer: Dragon Disclaimer: This electronic medical record was generated, in whole or in part, using a voice recognition dictation system. Departure Departure: Impression: Primary Impression: Flank pain Disposition: 01 DC HOME SELF CARE/HOMELESS Condition: STABLE Referrals: NICCI PFEIFFER DO (PCP) Patient Instructions: Flank Pain, [id number] Additional Instructions: EMERGENCY DEPARTMENT GENERAL DISCHARGE INSTRUCTIONS Follow-up with your primary physician in 1 to 2 days. Return to the emergency department if you have any new or concerning findings. Thank you for coming to [facility] emergency department today and trusting us with you care. We trust that you had a positive experience in our Emergency Department. If you wish to speak to the department management, you may call the Director at [phone]. YOUR FOLLOW UP INSTRUCTIONS ARE FOLLOWS: 1. Do you have a private Doctor? If you do not have a private doctor, please ask for a resource list of physicians or clinics that may be able to assist you with follow up care. 2. If a lab test or culture has been done and does not come back immediately, your results will be reviewed and you will be notified if you need a change in treatment. ADDITIONAL INSTRUCTIONS AND INFORMATION: 1. Your care today has been supervised by a physician who is specially trained in emergency care. Many problems require more than one evaluation for a complete diagnosis and treatment. We recommend that you schedule your follow up appointment as recommended to ensure complete treatment of you illness or injury. If you are unable to obtain follow up care and continue to have a problem, or if your condition worsens, we recommend that you return to the ED. 2. We are not able to safely determine your condition over the phone nor are we able to give sound medical advice over the phone. For these safety reasons, if you call for medical advice we will ask you to come to the ED for further evaluation. 3. If you have any questions regarding these discharge instructions please call the ED at [phone]. SAFETY INFORMATION: In the interest of safety, wellness, and injury prevention; we encourage you to wear your sealbelt, if you smoke; quite smoking, and we encourage family to use a protective helmet for bicycling and other sporting events that present an increased risk for head injury. IF YOUR SYMPTOMS WORSEN OR NEW SYMPTOMS DEVELOP, OR YOU HAVE CONCERNS ABOUT YOUR CONDITION; OR IF YOUR CONDITION WORSENS WHILE YOU ARE WAITING FOR YOUR FOLLOW UP APPOINTMENT; EITHER CONTACT YOUR PRIMARY CARE DOCTOR, THE PHYSICIAN WHOSE NAME AND NUMBER YOU WERE GIVEN, OR RETURN TO THE ED IMMEDIATELY. This condition should be evaluated by your primary care physician and any necessary consulting services for continued management within a few days (1-2) after discharge. Return to the emergency department if you have any new or concerning symptoms including but not limited to fever, chills, nausea, vomiting, intractable pain, any new rashes, chest pain, shortness of breath, uncontrolled bleeding, difficulty breathing, and/or vision loss. THOMAS MATUTE MD Apr 22, 2020 17:07
== END 2020-04-22 17:21 | disposition home or self-care (01) ==
LOC: ER 13:04
DX: R10.84 Generalized abdominal pain (principal); F41.9 Anxiety disorder, unspecified; I10 Essential (primary) hypertension; Z98.890 Other specified postprocedural states; Z87.442 Personal history of urinary calculi
CPT/HCPCS: 36415; 71045; 74176; 80048; 80076; 81001; 83690; 85025; 93005; 99285

== ENCOUNTER 2020-11-15 12:54 | Emergency (ER) | payer BC ==
[~2020-11-15] VITALS: Ht 198.1 cm; Wt 126.9 kg
[2020-11-15 13:08] VITALS: BP 163/103
--- NOTE | 2020-11-15 13:22 | PHYS DOC ---
Past History Past Medical History: Anxiety, Hypertension, Kidney Stones Past Surgical History: Cholecystectomy, Other Additional Past Surgical Histo: thyroid ablation; right arm fx repair Smoking: Non-smoker Alcohol Use: None Drug Use: None General Adult EDM: Chief Complaint: ABDOMINAL PAIN HPI: HPI: Patient is a 50-year-old male who presents to the ER today for right upper quadrant pain, distention and nausea started 2 days ago. Patient rates his pain 5 out of 10. It does not radiate. He states that he follows up with a GI doctor and was diagnosed with PPI 6 months ago. He states that since his diagnosis of EPI he has had abdominal pain and nausea. Patient denies any vomiting, diarrhea, blood in stools, dysuria, fevers. Patient has a history of a Ute and an appendectomy. His vital signs are stable. Patient states that he was diagnosed with Covid on Sunday. He states that he is unsure if his symptoms are due to his Covid diagnosis. Review of Systems: Review of Systems: 14 body systems of the review of systems have been reviewed. See HPI for pertinent positive and negative responses, otherwise all other systems are negat lupe, nonpertinent or noncontributory Allergies: Allergies: Allergies Coded Allergies Type Severity Reaction Last Updated Verified No Known Drug Allergies 04/08/18 No Physical Exam: PE: Constitutional: Well developed, well nourished, no acute distress, non-toxic appearance. [] HENT: Normocephalic, atraumatic, bilateral external ears normal, oropharynx moist, no oral exudates, nose normal. [] Eyes: PERRL, EOMI, conjunctiva normal, no discharge. [] Neck: Normal range of motion, no stridor Cardiovascular:Heart rate regular rhythm, no murmur [] Lungs & Thorax: Bilateral breath sounds clear to auscultation [] Abdomen: Bowel sounds normal, soft, abdominal distention noted, pain with deep palpation of right upper quadrant, no liver enlargement palpated Skin: Warm, dry, no erythema, no rash, no jaundice. [] Back: Normal range of motion Extremities: No tenderness, no cyanosis, no clubbing, ROM intact, no edema. [] Neurologic: Alert and oriented X 3, normal motor function, normal sensory function, no focal deficits noted. [] Psychologic: Affect normal, judgement normal, mood normal. [] Current Patient Data: Labs: Laboratory Tests Test 11/15/20 13:30 White Blood Count 5.7 x10^3/uL Red Blood Count 4.57 x10^6/uL Hemoglobin 15.5 g/dL Hematocrit 44.1 % Mean Corpuscular Volume 97 fL Mean Corpuscular Hemoglobin 34 pg Mean Corpuscular Hemoglobin Concent 35 g/dL Red Cell Distribution Width 12.4 % Platelet Count 213 x10^3/uL Neutrophils (%) (Auto) 70 % Lymphocytes (%) (Auto) 22 % Monocytes (%) (Auto) 7 % Eosinophils (%) (Auto) 0 % Basophils (%) (Auto) 1 % Neutrophils # (Auto) 4.0 x10^3uL Lymphocytes # (Auto) 1.3 x10^3/uL Monocytes # (Auto) 0.4 x10^3/uL Eosinophils # (Auto) 0.0 x10^3/uL Basophils # (Auto) 0.0 x10^3/uL Urine Collection Type Unknown Urine Color Yellow Urine Clarity Clear Urine pH 6.5 Urine Specific [place] <=1.005 Urine Protein Neg Urine Glucose (UA) Neg mg/dL Urine Ketones (Stick) Neg mg/dL Urine Blood Neg Urine Nitrite Neg Urine Bilirubin Neg Urine Urobilinogen Dipstick 0.2 mg/dL Urine Leukocyte Esterase Neg Urine RBC Rare /HPF Urine WBC Occ /HPF Urine Squamous Epithelial Cells Occ /LPF Urine Bacteria 0 /HPF Sodium Level 137 mmol/L Potassium Level 3.9 mmol/L Chloride Level 99 mmol/L Carbon Dioxide Level 28 mmol/L Anion Gap 10 Blood Urea Nitrogen 10 mg/dL Creatinine 1.0 mg/dL Estimated GFR (Cockcroft-Gault) 78.8 BUN/Creatinine Ratio 10 Glucose Level 102 mg/dL Calcium Level 9.3 mg/dL Total Bilirubin 2.0 mg/dL Aspartate Amino Transf (AST/SGOT) 41 U/L Alanine Aminotransferase (ALT/SGPT) 78 U/L Alkaline Phosphatase 62 U/L Total Protein 7.9 g/dL Albumin 4.1 g/dL Albumin/Globulin Ratio 1.1 Lipase 94 U/L Current Medications Medications (Trade) Dose Ordered Sig/Navin Route PRN Reason Start Time Stop Time Status Last Admin Dose Admin Sodium Chloride 1,000 ml @ 1,000 mls/hr 1X ONCE IV 11/15/20 13:30 11/15/20 14:29 11/15/20 13:28 Ondansetron HCl (Zofran) 4 mg 1X ONCE IVP 11/15/20 13:30 11/15/20 13:31 DC 11/15/20 13:28 Fentanyl Citrate (Fentanyl 2ml Vial) 50 mcg 1X ONCE IVP 11/15/20 13:30 11/15/20 13:31 DC 11/15/20 13:28 Iohexol (Omnipaque 300 Mg/ml) 75 ml 1X ONCE IV 11/15/20 13:30 11/15/20 13:31 DC 11/15/20 13:37 Info (Do NOT chart on this entry -- for MONITORING) 1 each PRN DAILY PRN MC SEE COMMENTS 11/15/20 13:30 11/17/20 13:29 Vital Signs: Vital Signs Date Time Temp Pulse Resp B/P (MAP) Pulse Ox O2 Delivery O2 Flow Rate FiO2 11/15/20 13:08 97.9 98 18 163/103 98 EKG: EKG: [] Radiology/Procedures: Radiology/Procedures: PROCEDURE: CT ABD PELV W/ IV CONTRST ONLY CT ABDOMEN+PELVIS W History: ruq pain, nausea Comparison: 04/22/2020 Technique: After administration of intravenous contrast, helical CT of the abdomen and pelvis was performed from the lung bases through the ischial tuberosities. Coronal and sagittal reconstructions were obtained. 75 mL of Omnipaque 300 were used. One or more of the following dose reduction techniques were utilized: Automated exposure control (AEC), Adjustment of mA and/or kV according to patient size, Use of iterative reconstruction technique such as ASiR, CT scan done according to ALARA and image gently/image wisely Abdomen Findings: The visualized lung bases are clear. The liver, pancreas, spleen, and bilateral adrenal glands are normal. Cholecystectomy. Symmetric renal enhancement. There is no focal renal mass. There is no hydronephrosis. Gastric fundal diverticulum. The visualized loops of small bowel are normal. The visualized loops of large bowel are normal. There is no evidence of bowel obstruction. Appendix is normal. There is no free fluid. There is no mesenteric or retroperitoneal adenopathy. The abdominal aorta is normal in caliber. Pelvis Findings: Urinary bladder is normal. No pelvic free fluid. There is no pelvic or inguinal adenopathy. There is no acute bony abnormality. Degenerative changes of the spine. IMPRESSION: 1. No acute findings. 2. Cholecystectomy. Electronically signed by: Janki Ontiveros MD (11/15/2020 2:17 PM) [facility] DICTATED AND SIGNED BY: JANKI ONTIVEROS MD DATE: 11/15/20 1413 CC: CONNIE LINCOLN APRN; MARGARETTENICCI Waqar DO ~MTH0 0 [] Heart Score: C/O Chest Pain: No Risk Factors: Risk Factors: DM, Current or recent (<one month) smoker, HTN, HLP, family history of CAD, obesity. Risk Scores: Score 0 - 3: 2.5% MACE over next 6 weeks - Discharge Home Score 4 - 6: 20.3% MACE over next 6 weeks - Admit for Clinical Observation Score 7 - 10: 72.7% MACE over next 6 weeks - Early Invasive Strategies Course & Med Decision Making: Course & Med Decision Making Pertinent Labs and Imaging studies reviewed. (See chart for details) Patient is a 50-year-old male being seen in the ER for right upper quadrant pain with nausea that worsened over the last 2 days but started 6 months prior after being diagnosed with HPI. Patient is Covid positive, diagnosed on Sunday. Work-up in the ER consisted of blood work, urinalysis, CT scan of abdomen. Patient treated with fluids, nausea medication and pain medication. Had mild elevation in liver enzymes, this is most likely due to his COVID-[address] scan of abdomen was unremarkable. Patient's bilirubin was 2 which is consistent with his previous lab values. Patient advised to follow-up with his primary care provider to have these levels rechecked to make sure that they are going down. I discussed with patient all findings and diagnostic testing as well as the need to follow-up with PCP for further evaluation and treatment or return to the ER if any new or worsening symptoms. Strict return precautions were also discussed at length. Patient voiced understanding and agreement with the plan. Patient is hemodynamically stable at the time of disposition. Dragon Disclaimer: Dragon Disclaimer: This electronic medical record was generated, in whole or in part, using a voice recognition dictation system. Departure Departure: Impression: Primary Impression: Abdominal pain Qualified Codes: R10.11 - Right upper quadrant pain Additional Impression: Elevated liver enzymes Disposition: 01 HOME / SELF CARE / HOMELESS Condition: GOOD Referrals: NICCI PFEIFFER DO (PCP) Patient Instructions: Abdominal Pain Additional Instructions: You are seen in the ER today for right upper abdominal pain. Your CT scan of your abdomen was unremarkable. You were noted to have mild elevation in your liver enzymes. This is likely due to your COVID-19 infection. Please follow-up with your primary care provider tomorrow to set up an appointment to have your labs rechecked. Please follow-up with your GI doctor as needed. Continue take your pancreatic enzymes as directed. Follow-up low-fat diet to help with your EPI. Increase your fluids. Take your nausea medication as needed as previously prescribed. If you develop worsening of your abdominal pain, yellowing of your skin, increased abdominal distention, intractable nausea vomiting or diarrhea, blood in your stools or vomit, high fevers refractory to treatment please return to the ER immediately. EMERGENCY DEPARTMENT GENERAL DISCHARGE INSTRUCTIONS Thank you for coming to [facility] (ED) today and trusting us with you care. We trust that you had a positivie experience in our Emergency Department. If you wish to speak to the department management, you may call the director at [phone]. YOUR FOLLOW UP INSTRUCTIONS ARE FOLLOWS: 1. Do you have a private Doctor? If you do not have a private doctor, please ask for a resource list of physicians or clinics that may be able to assist you with follow up care. 2. The Emergency Physician has interpreted your x-rays. The X-Ray specialist will also review them. If there is a change in the findings, you will be notified in 48 hours when at all possible. 3. A lab test or culture has been done, your results will be reviewed and you will be notified if you need a change in treatment. ADDITIONAL INSTRUCTIONS AND INFORMATION: 1. Your care today has been supervised by a physician who is specially trained in emergency care. Many problems require more than one evaluation for a complete diagnosis and treatment. We recommend that you schedule your follow up appointment as recommended to ensure complete treatment of you illness or injury. If you are unable to obtain follow up care and continue to have a problem, or if your condition worsens, we recommend that you return to the ED. 2. We are not able to safely determine your condition over the phone nor are we able to give sound medical advice over the phone. For these safety reasons, if you call for medical advice we will ask you to come to the ED for further evaluation. 3. If you have any questions regarding these discharge instructions please call the ED at [phone]. SAFETY INFORMATION: In the interest of safety, wellness, and injury prevention; we encourage you to wear your sealbelt, if you smoke; quite smoking, and we encourage family to use a protective helmet for bicycling and other sporting events that present an increased risk for head injury. IF YOUR SYMPTOMS WORSEN OR NEW SYMPTOMS DEVELOP, OR YOU HAVE CONCERNS ABOUT YOUR CONDITION; OR IF YOUR CONDITION WORSENS WHILE YOU ARE WAITING FOR YOUR FOLLOW UP APPOINTMENT; EITHER CONTACT YOUR PRIMARY CARE DOCTOR, THE PHYSICIAN WHOSE NAME AND NUMBER YOU WERE GIVEN, OR RETURN TO THE ED IMMEDIATELY. CONNIE LINCOLN GLOVE TAGGER Nov 15, 2020 13:22
[2020-11-15] MEDS ORDERED: IOHEXOL 300 MG/ML 75 ML VIAL. IV ONE (13:30)
[2020-11-15] MEDS ORDERED: CONTRAST GIVEN. MC PRN (13:30)
[2020-11-15] MEDS ORDERED: ONDANSETRON PF 4 MG/2 ML VIAL. IVP ONE (13:30)
[2020-11-15] MEDS ORDERED: IV NORMAL SALINE 1,000ML 1,000 ML IV ONE (13:30)
[2020-11-15 13:48] LABS: BASO % 1 % (0-3); EOS % 0 % (0-3); HEMATOCRIT 44.1 % (39.0-53.0); HEMOGLOBIN 15.5 g/dL (13.0-17.5); LYMPH # 1.3 x10^3/uL (1.0-4.8); LYMPH % 22 % (24-48); MEAN CORPUSCULAR HEMOGLOBIN 34 pg (25-35); MEAN CORPUSCULAR HGB CONC 35 g/dL (31-37); MEAN CORPUSCULAR VOLUME 97 fL (79-100); MONO # 0.4 x10^3/uL (0.0-1.1); MONO % 7 % (0-9); NEUT % 70 % (31-73); PLATELET COUNT 213 x10^3/uL (140-400); RED BLOOD COUNT 4.57 x10^6/uL (4.30-5.70); RED CELL DISTRIBUTION WIDTH 12.4 % (11.5-14.5); WHITE BLOOD COUNT 5.7 x10^3/uL (4.0-11.0)
[2020-11-15 13:55] LABS: CALCIUM 9.3 mg/dL (8.5-10.1); GFR 78.8; POTASSIUM 3.9 mmol/L (3.5-5.1)
[2020-11-15 14:03] LABS: ALBUMIN 4.1 g/dL (3.4-5.0); ALBUMIN/GLOBULIN RATIO 1.1 (1.0-1.7); TOTAL PROTEIN 7.9 g/dL (6.4-8.2)
[2020-11-15 14:12] LABS: BACTERIA,URINE 0 /HPF (0-FEW); BILIRUBIN,URINE NEG (NEG); CLARITY,URINE CLEAR; COLOR,URINE YELLOW; GLUCOSE,URINE NEG (NEG); NITRITE,URINE NEG (NEG); RBC,URINE RARE /HPF (0-2); SQUAMOUS EPITHELIAL CELL,UR OCC /LPF; UROBILINOGEN,URINE 0.2 mg/dL (0.2 mg/dL); WBC,URINE OCC /HPF (0-4)
--- NOTE | 2020-11-15 14:20 | RAD ---
CT ABDOMEN+PELVIS W History: ruq pain, nausea Comparison: 04/22/2020 Technique: After administration of intravenous contrast, helical CT of the abdomen and pelvis was per formed from the lung bases through the ischial tuberosities. Coronal and sagittal reconstructions wer e obtained. 75 mL of Omnipaque 300 were used. One or more of the following dose reduction techniques were utilized: Automated exposure control (AEC), Adjustment of mA and/or kV according to patient size , Use of iterative reconstruction technique such as ASiR, CT scan done according to ALARA and image g ently/image wisely Abdomen Findings: The visualized lung bases are clear. The liver, pancreas, spleen, and bilateral adrenal glands are normal. Cholecystectomy. Symmetric renal enhancement. There is no focal renal mass. There is no hydronephrosis. Gastric fundal diverticulum. The visualized loops of small bowel are normal. The visualized loops of large bowel are normal. There is no evidence of bowel obstruction. Appendix is normal. There is no free fluid. There is no mesenteric or retroperitoneal adenopathy. The abdominal aorta is normal in caliber. Pelvis Findings: Urinary bladder is normal. No pelvic free fluid. There is no pelvic or inguinal adenopathy. There is no acute bony abnormality. Degenerative changes of the spine. IMPRESSION: 1. No acute findings. 2. Cholecystectomy. Electronically signed by: Allan Fernandez MD (11/15/2020 2:17 PM) [facility]
== END 2020-11-15 15:15 | disposition home or self-care (01) ==
LOC: ER 12:54
DX: R10.11 Right upper quadrant pain (principal); R74.8 Abnormal levels of other serum enzymes; I10 Essential (primary) hypertension; Z90.49 Acquired absence of other specified parts of digestive tract; Z87.442 Personal history of urinary calculi
CPT/HCPCS: 36415; 74177; 80053; 81001; 83690; 85025; 96361; 96374; 96375; 99285; J2405; J3010; J7030; Q9967

== ENCOUNTER 2020-11-16 08:30 | Emergency (ER) | payer BC ==
[~2020-11-16] VITALS: Ht 198.1 cm; Wt 125.2 kg
--- NOTE | 2020-11-16 09:17 | PHYS DOC ---
Past History Past Medical History: Anxiety, Hypertension, Kidney Stones Additional Past Medical Histor: fatty liver; EPI Past Surgical History: Cholecystectomy, Other Additional Past Surgical Histo: thyroid ablation; right arm fx repair Smoking: Non-smoker Alcohol Use: None Drug Use: None Adult General Chief Complaint Chief Complaint: ABDOMINAL PAIN HPI HPI Patient is a 50-year-old male presenting for concern about liver enzymes. He has history of EPI, fatty liver disease and prior cholecystectomy. He is currently positive for COVID-19 infection but does disclose he received x2 [employer]. Reports he has been at baseline health since being seen at our facility yesterday but has been constantly worried about his elevated liver enzymes. He is here requesting repeat lab draw today Review of Systems Review of Systems Fourteen body systems of review of systems have been reviewed. See HPI for pertinent positives and negative responses, other pacheco all other systems are negative, non-pertinent or non-contributory Allergies Allergies Allergies Coded Allergies Type Severity Reaction Last Updated Verified No Known Drug Allergies 11/16/20 No Physical Exam Physical Exam Constitutional: Well developed, well nourished, no acute distress, non-toxic appearance. HENT: Normocephalic, atraumatic, bilateral external ears normal, oropharynx moist, no oral exudates, nose normal. Eyes: PERRLA, EOMI, conjunctiva normal, no discharge. Neck: Normal range of motion, no tenderness, supple, no stridor. Cardiovascular: Heart rate regular, sinus rhythm, no murmurs rubs or gallops Lungs & Thorax: Bilateral breath sounds clear to auscultation Abdomen: Bowel sounds normal, soft, no tenderness, no masses, no pulsatile masses. Nonsurgical abdomen, no peritoneal signs Skin: Warm, dry, no erythema, no rash. Back: No tenderness, no CVA tenderness. Extremities: No tenderness, no cyanosis, no clubbing, ROM intact, no edema. Neurologic: Alert and oriented X 3, grossly normal motor & sensory function, no focal deficits noted. Psychologic: Affect normal, judgement normal, mood normal. Current Patient Data Vital Signs Vital Signs Date Time Temp Pulse Resp B/P (MAP) Pulse Ox O2 Delivery O2 Flow Rate FiO2 11/16/20 08:30 98.5 100 20 146/91 97 Room Air Lab Results Laboratory Tests Test 11/16/20 09:25 Sodium Level 138 mmol/L Potassium Level 3.0 mmol/L Chloride Level 100 mmol/L Carbon Dioxide Level 26 mmol/L Anion Gap 12 Blood Urea Nitrogen 10 mg/dL Creatinine 0.9 mg/dL Estimated GFR (Cockcroft-Gault) 89.0 BUN/Creatinine Ratio 11 Glucose Level 176 mg/dL Calcium Level 9.1 mg/dL Total Bilirubin 2.1 mg/dL Aspartate Amino Transf (AST/SGOT) 32 U/L Alanine Aminotransferase (ALT/SGPT) 74 U/L Alkaline Phosphatase 62 U/L Total Protein 7.5 g/dL Albumin 3.9 g/dL Albumin/Globulin Ratio 1.1 EKG EKG [] Radiology/Procedures Radiology/Procedures [] Heart Score C/O Chest Pain: No Risk Factors: Risk Factors: DM, Current or recent (<one month) smoker, HTN, HLP, family history of CAD, obesity. Risk Scores: Risk Factors: DM, Current or recent (<one month) smoker, HTN, HLP, family history of CAD, obesity. Course & Med Decision Making Course & Med Decision Making ABCs unremarkable. HPI and physical examination nonconcerning for any emergent or surgical issues I disclosed with patient little indication for further diagnostic work-up in ER setting but patient was adamant about receiving repeat liver enzymes to trend. I do not know what he wants this information for, I disclosed pathogenesis of COVID-19 infection and that this is normal etc. Ultimately, repeat CMP obtained and results disclosed with patient. I reiterated no need for further diagnostic work-up and/or aggressive intervention in ER setting in an otherwise well-appearing hemodynamically stable patient who is just worried well. 40 mEq potassium given for hypokalemia. Strict return precautions discussed with good understanding, all questions and concerns addressed prior to ER departure Dragon Disclaimer Dragon Disclaimer This electronic medical record was generated, in whole or in part, using a voice recognition dictation system. Departure Departure: Impression: Primary Impression: Elevated liver enzymes Additional Impressions: COVID-19 Hypokalemia Disposition: 01 HOME / SELF CARE / HOMELESS Condition: STABLE Referrals: NICCI PFEIFFER DO (PCP) Additional Instructions: You were seen for a known infection with COVID-19. Your physical exam was shaylee ssuring. You need to quarantine yourself at home away from all other individuals, especially those who are elderly or have any other chronic health issues or an immunocompromised status. You should return to the ED if you develop worsening cough, shortness of breath, chest pain, or any other new or concerning symptoms. Alternate Tylenol and ibuprofen as needed for body aches and pain. I recommend you contact your primary care physician to review current COVID-19 infection in to follow-up on your elevated liver enzymes and low potassium level in the outpatient setting once safe to be seen in clinic again. Problem Qualifiers LUIS ENRIQUE NGUYEN DO Nov 16, 2020 09:17
[2020-11-16 09:48] LABS: CALCIUM 9.1 mg/dL (8.5-10.1); CREATININE 0.9 mg/dL (0.7-1.3)
[2020-11-16 09:54] LABS: ALBUMIN 3.9 g/dL (3.4-5.0); ALBUMIN/GLOBULIN RATIO 1.1 (1.0-1.7); TOTAL BILIRUBIN 2.1 mg/dL (0.2-1.0); TOTAL PROTEIN 7.5 g/dL (6.4-8.2)
[2020-11-16] MEDS ORDERED: POTASSIUM CHLORIDE 20 MEQ TABLET.ER. PO ONE (10:15)
[2020-11-16 10:23] VITALS: BP 135/86
== END 2020-11-16 10:23 | disposition home or self-care (01) ==
LOC: ER 08:30
DX: U07.1 COVID-19 (principal); R74.8 Abnormal levels of other serum enzymes; E87.6 Hypokalemia; F41.9 Anxiety disorder, unspecified; I10 Essential (primary) hypertension; Z87.442 Personal history of urinary calculi; Z90.49 Acquired absence of other specified parts of digestive tract
CPT/HCPCS: 36415; 80053; 99283

== ENCOUNTER 2020-11-21 12:57 | Emergency (ER) | payer BC ==
[~2020-11-21] VITALS: Ht 198.1 cm; Wt 125.5 kg
[2020-11-21 13:12] VITALS: BP 140/86
--- NOTE | 2020-11-21 14:56 | PHYS DOC ---
Past History Past Medical History: Anxiety, Hypertension, Kidney Stones Additional Past Medical Histor: EPI Past Surgical History: Cholecystectomy Additional Past Surgical Histo: ORIF right arm Smoking: Non-smoker Alcohol Use: None Drug Use: None General Adult EDM: Chief Complaint: MULTIPLE COMPLAINTS HPI: HPI: Patient is a 50-year-old male who presents with generalized anxiety. Patient's been seen 2 times in the last couple weeks in the emergency room here, and also at a different emergency room 3 times in the last 2 weeks. Patient states he has right-sided upper abdominal pain, numbness and tingling to bilateral arms and legs that is intermittent. Patient states he was diagnosed with Covid 2 weeks ago and since then he has had a lot of anxiety. Patient denies chest pain, cough, fever, shortness of breath. Patient states "I have really bad anxiety and I quit taking my Prozac". "I does get really worried and have anxiety about my health" patient is a history of anxiety, depression, thyroid removal Review of Systems: Review of Systems: Constitutional: Denies fever or chills Eyes: Denies change in visual acuity HENT: Denies nasal congestion or sore throat Respiratory: Denies cough or shortness of breath Cardiovascular: Denies chest pain or edema GI: Reports right upper quadrant abdominal pain, denies nausea, vomiting, bloody stools or diarrhea : Denies dysuria Musculoskeletal: Denies back pain or joint pain Integument: Denies rash Neurologic: Denies headache, focal weakness or sensory changes Endocrine: Denies polyuria or polydipsia Lymphatic: Denies swollen glands Psychiatric: Reports depression or anxiety Allergies: Allergies: Allergies Coded Allergies Type Severity Reaction Last Updated Verified No Known Drug Allergies 11/16/20 No Physical Exam: PE: Constitutional: Well developed, well nourished, no acute distress, non-toxic appearance. [] HENT: Normocephalic, atraumatic, bilateral external ears normal, oropharynx moist, no oral exudates, nose normal. [] Eyes: PERRLA, EOMI, conjunctiva normal, no discharge. [] Neck: Normal range of motion, no tenderness, supple, no stridor. [] Cardiovascular:Heart rate regular rhythm, no murmur [] Lungs & Thorax: Bilateral breath sounds clear to auscultation [] Abdomen: Bowel sounds normal, soft, no tenderness, no masses, no pulsatile masses. [] Skin: Warm, dry, no erythema, no rash. [] Back: No tenderness, no CVA tenderness. [] Extremities: No tenderness, no cyanosis, no clubbing, ROM intact, no edema. [] Neurologic: Alert and oriented X 3, normal motor function, normal sensory function, no focal deficits noted. [] Psychologic: Affect normal, judgement normal, mood normal. [] Current Patient Data: Vital Signs: Vital Signs Date Time Temp Pulse Resp B/P (MAP) Pulse Ox O2 Delivery O2 Flow Rate FiO2 11/21/20 13:12 98.6 100 14 140/86 (104) 96 EKG: EKG: [] Radiology/Procedures: Radiology/Procedures: [] Heart Score: C/O Chest Pain: No Risk Factors: Risk Factors: DM, Current or recent (<one month) smoker, HTN, HLP, family history of CAD, obesity. Risk Scores: Score 0 - 3: 2.5% MACE over next 6 weeks - Discharge Home Score 4 - 6: 20.3% MACE over next 6 weeks - Admit for Clinical Observation Score 7 - 10: 72.7% MACE over next 6 weeks - Early Invasive Strategies Course & Med Decision Making: Course & Med Decision Making Pertinent Labs and Imaging studies reviewed. (See chart for details) [] 50-year-old male being seen for right upper quadrant pain. Patient's been se en times in the last 2 weeks for same complaint. Patient is also was seen 2 other times on [facility] in emergency room with same symptoms. Patient states that he has generalized anxiety disorder and most of his anxiety is about his health. All labs unremarkable. Patient has an appointment with his PCP on Sunday. Days patient he needs to keep his appointment so he can follow-up about his TSH, A1c, and anxiety. Patient states that he agrees and will make sure he follows up tomorrow. Sending patient home with Viola for anxiety until he can follow-up with his PCP tomorrow. Patient is hemodynamically stable upon disposition. Amelia Disclaimer: Amelia Disclaimer: This electronic medical record was generated, in whole or in part, using a voice recognition dictation system. Departure Departure: Impression: Primary Impression: Anxiety Additional Impression: Abdominal pain Qualified Codes: R10.11 - Right upper quadrant pain Disposition: 01 HOME / SELF CARE / HOMELESS Condition: STABLE Referrals: NICCI PFEIFFER DO (PCP) Patient Instructions: Anxiety and Panic Attacks, [id number] Additional Instructions: You were seen in the emergency room for abdominal pain. Your labs were drawn. Some of the labs you requested will not be resulted for the until the next couple of days. Please keep your appointment with your PCP so you can address your A1c, your anxiety, and your TSH. I am sending you home with a couple Xanax to help with anxiety. Please return to the emergency room if you have worsening symptoms or concerns. EMERGENCY DEPARTMENT GENERAL DISCHARGE INSTRUCTIONS Thank you for coming to [facility] (ED) today and trusting us with you care. We trust that you had a positivie experience in our Emergency Department. If you wish to speak to the department management, you may call the director at [phone]. YOUR FOLLOW UP INSTRUCTIONS ARE FOLLOWS: 1. Do you have a private Doctor? If you do not have a private doctor, please ask for a resource list of physicians or clinics that may be able to assist you with follow up care. 2. The Emergency Physician has interpreted your x-rays. The X-Ray specialist will also review them. If there is a change in the findings, you will be notified in 48 hours when at all possible. 3. A lab test or culture has been done, your results will be reviewed and you will be notified if you need a change in treatment. ADDITIONAL INSTRUCTIONS AND INFORMATION: 1. Your care today has been supervised by a physician who is specially trained in emergency care. Many problems require more than one evaluation for a complete diagnosis and treatment. We recommend that you schedule your follow up appointment as recommended to ensure complete treatment of you illness or injury. If you are unable to obtain follow up care and continue to have a problem, or if your condition worsens, we recommend that you return to the ED. 2. We are not able to safely determine your condition over the phone nor are we able to give sound medical advice over the phone. For these safety reasons, if you call for medical advice we will ask you to come to the ED for further evaluation. 3. If you have any questions regarding these discharge instructions please call the ED at [phone]. SAFETY INFORMATION: In the interest of safety, wellness, and injury prevention; we encourage you to wear your sealbelt, if you smoke; quite smoking, and we encourage family to use a protective helmet for bicycling and other sporting events that present an increased risk for head injury. IF YOUR SYMPTOMS WORSEN OR NEW SYMPTOMS DEVELOP, OR YOU HAVE CONCERNS ABOUT YOUR CONDITION; OR IF YOUR CONDITION WORSENS WHILE YOU ARE WAITING FOR YOUR FOLLOW UP APPOINTMENT; EITHER CONTACT YOUR PRIMARY CARE DOCTOR, THE PHYSICIAN WHOSE NAME AND NUMBER YOU WERE GIVEN, OR RETURN TO THE ED IMMEDIATELY. Scripts Alprazolam (XANAX) 0.5 Mg Tablet 1 TAB PO DAILY for anxiety, #30 TAB Prov: JORDYN RIVAS APRN 11/21/20 JORDYN RIVAS APRN Nov 21, 2020 14:55
[2020-11-21 16:01] LABS: BASO % 1 % (0-3); EOS % 0 % (0-3); HEMATOCRIT 39.6 % (39.0-53.0); HEMOGLOBIN 13.8 g/dL (13.0-17.5); LYMPH # 1.2 x10^3/uL (1.0-4.8); LYMPH % 15 % (24-48); MEAN CORPUSCULAR HEMOGLOBIN 34 pg (25-35); MEAN CORPUSCULAR HGB CONC 35 g/dL (31-37); MEAN CORPUSCULAR VOLUME 98 fL (79-100); MONO # 0.5 x10^3/uL (0.0-1.1); MONO % 6 % (0-9); NEUT # 6.3 x10^3uL (1.8-7.7); NEUT % 79 % (31-73); PLATELET COUNT 271 x10^3/uL (140-400); RED BLOOD COUNT 4.04 x10^6/uL (4.30-5.70); RED CELL DISTRIBUTION WIDTH 12.4 % (11.5-14.5)
[2020-11-21 16:02] LABS: CALCIUM 8.9 mg/dL (8.5-10.1); CREATININE 0.9 mg/dL (0.7-1.3); POTASSIUM 3.3 mmol/L (3.5-5.1)
[2020-11-21 16:08] LABS: ALBUMIN/GLOBULIN RATIO 1.3 (1.0-1.7); TOTAL BILIRUBIN 1.4 mg/dL (0.2-1.0); TOTAL PROTEIN 7.2 g/dL (6.4-8.2)
[2020-11-21] MEDS ORDERED: ALPR0.5T PO (16:34)
--- NOTE | 2020-11-21 22:02 | EKG ---
[address] [address] Test Date: 2020-11-21 Test Time: 13:15:39 Pat Name: KALA CLAYTON Department: Room: Gender: M [employer]: : 1970 Requested By: JORDYN RIVAS Order Number: [id number] Reading MD: Lamin Lazo Measurements Intervals [place] Rate: 99 P: -28 WV: 118 QRS: -22 QRSD: 88 T: -8 QT: 320 QTc: 416 Interpretive Statements SINUS RHYTHM LEFTWARD AXIS T ABNORMALITY IN ANTERIOR LEADS ABNORMAL ECG Electronically Signed On 11-23-2020 13:25:12 CDT by Lamin Lazo
== END 2020-11-21 16:55 | disposition home or self-care (01) ==
LOC: ER 12:57
DX: F41.1 Generalized anxiety disorder (principal); R10.11 Right upper quadrant pain; R20.2 Paresthesia of skin; F41.9 Anxiety disorder, unspecified; I10 Essential (primary) hypertension; Z87.442 Personal history of urinary calculi; Z90.49 Acquired absence of other specified parts of digestive tract
CPT/HCPCS: 36415; 80053; 84443; 85025; 93005; 99284

== ENCOUNTER 2020-11-23 08:10 | Emergency (ER) | payer BC ==
[~2020-11-23] VITALS: Ht 198.1 cm; Wt 124.6 kg
[~2020-11-23 08:10] MED LIST changes: +ALPR0.5T PO
--- NOTE | 2020-11-23 08:25 | PHYS DOC ---
Past History Past Medical History: Anxiety, Hypertension, Kidney Stones Additional Past Medical Histor: EPI Past Surgical History: Cholecystectomy Additional Past Surgical Histo: ORIF right arm Smoking: Non-smoker Alcohol Use: None Drug Use: None Adult General HPI HPI Patient is a 50-year-old male presenting for body aches. This is his fourth visit in the past 8 days here at our facility, also has had a couple visits to the outlying ERs within the same time. He was diagnosed with Covid 2 weeks ago and has had a lot of anxiety about his health. Patient was fixated on transaminitis and came back for repeat evaluation at last visit. He was here 2 days ago for anxiety about health. States he was " cleared of Covid" and resumed work yesterday. Reports he had generalized muscle aches and pains which concerned him so he visited an additional ER, [facility]. Patient reports his potassium level was 2.9 at that time, he was given potassium supplement and advised to follow-up in outpatient setting with primary care physician. He presents today anxious about his potassium level. He also reports ongoing muscle aches, he has not taken anything for these today. Otherwise denies any fever, blurred vision, chest pain, ripping or tearing sensation in chest, shortness of breath, cough, abdominal pain or other concerning findings Review of Systems Review of Systems Fourteen body systems of review of systems have been reviewed. See HPI for pertinent positives and negative responses, other pacheco all other systems are negative, non-pertinent or non-contributory Allergies Allergies Allergies Coded Allergies Type Severity Reaction Last Updated Verified No Known Drug Allergies 11/16/20 No Physical Exam Physical Exam Constitutional: Well developed, well nourished, no acute distress, non-toxic appearance. HENT: Normocephalic, atraumatic, bilateral external ears normal, oropharynx moist, no oral exudates, nose normal. Eyes: PERRLA, EOMI, conjunctiva normal, no discharge. Neck: Normal range of motion, no tenderness, supple, no stridor. Cardiovascular: Heart rate regular, sinus rhythm, no murmurs rubs or gallops Lungs & Thorax: Bilateral breath sounds clear to auscultation Abdomen: Bowel sounds normal, soft, no tenderness, no masses, no pulsatile masses. Nonsurgical abdomen, no peritoneal signs Skin: Warm, dry, no erythema, no rash. Back: No tenderness, no CVA tenderness. Extremities: No tenderness, no cyanosis, no clubbing, ROM intact, no edema. Neurologic: Alert and oriented X 3, grossly normal motor & sensory function, no focal deficits noted. Psychologic: Anxious affect and mood Current Patient Data Vital Signs Vital Signs Date Time Temp Pulse Resp B/P (MAP) Pulse Ox O2 Delivery O2 Flow Rate FiO2 11/23/20 08:12 98.1 98 18 150/51 (84) 98 Room Air Vital Signs Date Time Temp Pulse Resp B/P (MAP) Pulse Ox O2 Delivery O2 Flow Rate FiO2 11/23/20 08:12 98.1 98 18 150/51 (84) 98 Room Air Lab Results Laboratory Tests Test 11/23/20 08:32 Sodium Level 138 mmol/L Potassium Level 3.3 mmol/L Chloride Level 100 mmol/L Carbon Dioxide Level 28 mmol/L Anion Gap 10 Blood Urea Nitrogen 12 mg/dL Creatinine 1.1 mg/dL Estimated GFR (Cockcroft-Gault) 70.6 Glucose Level 119 mg/dL Calcium Level 9.1 mg/dL Current Medications Medications (Trade) Dose Ordered Sig/Navin Route PRN Reason Start Time Stop Time Status Last Admin Dose Admin Acetaminophen (Tylenol) 650 mg 1X ONCE PO 11/23/20 08:30 11/23/20 08:31 DC 11/23/20 08:37 Potassium Chloride (Klor-Con) 40 meq 1X ONCE PO 11/23/20 09:15 11/23/20 09:18 DC EKG EKG [] Radiology/Procedures Radiology/Procedures [] Heart Score C/O Chest Pain: No Risk Factors: Risk Factors: DM, Current or recent (<one month) smoker, HTN, HLP, family history of CAD, obesity. Risk Scores: Risk Factors: DM, Current or recent (<one month) smoker, HTN, HLP, family history of CAD, obesity. Course & Med Decision Making Course & Med Decision Making ABCs normal. Patient anxious. This is his seventh ER visit in 8 days across the [facility] Patient fixated on potassium value that was corrected yesterday at outlying ER. Lab draw today showed potassium of 3.3. Supplemental potassium administered with instructions to eat a banana a day and follow-up with outpatient primary care physician I educated patient extensively on proper use of emergency room especially in the middle of the COVID-19 pandemic when access to emergency providers and overall capacity of healthcare system is at a bursting point I also educated patient need on trying to provide self-care prior to seeking immediate emergency room help such as taking Tylenol for aches and pains before seeking evaluation Strict return precautions were discussed with good understanding by patient, all questions and concerns addressed prior to ER departure Dragon Disclaimer Dragon Disclaimer This electronic medical record was generated, in whole or in part, using a voice recognition dictation system. Departure Departure: Impression: Primary Impression: Hypokalemia Additional Impression: Body aches Disposition: HOME / SELF CARE / HOMELESS Condition: STABLE Referrals: NICCI PFEIFFER DO (PCP) Additional Instructions: You are seen in our ER and requested repeat lab values despite recent extensive work-up by numerous ER providers across the [facility]. Your potassium level was 3.3 and decision was made to administer supplemental potassium. There is no need for continued potassium supplement in outpatient setting, I advise you try and eat a banana a day. You are very anxious about your health, it is pertinent that you follow-up and try and contact your primary care provider and/or provide self-care prior to visiting in emergency room for evaluation given current COVID-19 pandemic and capacity issues. As stressed, please call your primary care provider after ER visit today and review your numerous ER visits and need for close outpatient follow-up for which you would benefit from. Problem Qualifiers LUIS ENRIQUE NGUYEN DO Nov 23, 2020 08:25
[2020-11-23] MEDS ORDERED: ACETAMINOPHEN 325 MG TABLET PO ONE (08:30)
[2020-11-23 09:00] VITALS: BP 142/70
[2020-11-23 09:06] LABS: CALCIUM 9.1 mg/dL (8.5-10.1); CREATININE 1.1 mg/dL (0.7-1.3); GFR 70.6; POTASSIUM 3.3 mmol/L (3.5-5.1)
[2020-11-23] MEDS ORDERED: POTASSIUM CHLORIDE 20 MEQ TABLET.ER. PO ONE (09:15)
== END 2020-11-23 09:30 | disposition home or self-care (01) ==
LOC: ER 08:10
DX: E87.6 Hypokalemia (principal); M79.10 Myalgia, unspecified site; F41.9 Anxiety disorder, unspecified; I10 Essential (primary) hypertension; Z87.442 Personal history of urinary calculi; Z90.49 Acquired absence of other specified parts of digestive tract
CPT/HCPCS: 36415; 80048; 99283